=== PATIENT | male | born 1945 | race Caucasian/White ===

== ENCOUNTER → 2018-11-20 | Outpatient (CLI) | payer MEDICARE ==
--- NOTE | 2018-11-20 13:14 | PCVCIMAG ---
APPROVED REPORT Imaging Protocol: Rest Tc-99m/Stress Tc-99m 1 day Study performed: 11/20/2018 09:28:52 Indication: PAF, CAD Patient Location: Out-Patient Stress Nurse: Raiza Longo RN, NICHOLE Brown Tech:Hesham ArevaloKIM Ht: 5 ft 9 in Wt: 169 lbs BSA: 1.92 m2 HR: 56 bpm BP: 171/91 mmHg BMI: 24.95 Rhythm: Sinus Bradycardia Medical History Medical History: Age, Hyperlipidemia, HTN, Afib, CAD Medications: Xanax, ASA, Atorvastatin, Proscar, Levothyroxine, Metoprolol, Tramadol, Xarellto Allergies: Clopidogrel, Effient, Talwin Previous Cardiac Procedures: 2006 PCI - LAD/OM, 2016 - LAD Pretest Chest Pain Characteristics: No chest pain Exercise History: Indeterminate Physical Disabilities: Arthritis Resting Data Rest SPECT myocardial perfusion imaging was performed in supine position 45 minutes following the intravenous injection of 9.2 mCi of Tc-99m Sestamibi. Time of rest injection: 0855 Date: 11/20/2018 Administration Route: IV Administration Site: Right AC Pharmacologic Stress Pharmacologic stress test was performed by injecting Regadenoson 0.4 mg IV push over 10-15 seconds immediately followed by the intravenous injection of 28.2 mCi of Tc-99m Sestamibi. Time of stress injection: 1030 Date: 11/20/2018 Administration Route: IV Administration Site: Right AC Gated Stress SPECT was performed 45 minutes after stress injection. The images were gated to evaluate regional wall motion and calculate left ventricular ejection fraction. Stress Test Details Stress Test: Pharmacologic stress was paired with low level exercise. Reason for pharmacologic stress test: Arthritis. HRMax Heart Rate (APMHR): 148 bpm Resting HR: 56 bpmTarget HR (85% APMHR): 125 bpm Max HR Achieved: 104 bpm % of APMHR: 70 Recovery HR: 73 bpm BP Resting BP: 171/91 mmHg Max BP: 158/84 mmHg Recovery BP: 134/73 mmHg ECG Resting ECG: Sinus Bradycardia Stress ECG: Sinus Rhythm ST Change: Eqivocal Arrhythmia: None Recovery ECG: Sinus Rhythm Clinical Reason for Termination: Completed protocol Stress Symptoms: Lightheaded Exercise duration: 4 min 00 sec Symptoms resolved during recovery. Study Quality Study: Good Artifact: Mild Diaphragmatic artifact Study Data Post stress, the left ventricular ejection was 74%.. SSS: 1 SRS: 1 SDS: 0 TID = 1.03. Perfusion There is a medium area of mildly reduced uptake in the basal and mid segment of the inferior wall which is seen on the stress images as well as the resting images. This area thickens and moves normally and is most consistent with attenuation artifact. Wall Motion Normal left ventricular wall motion. Nuclear Conclusion ECG Findings: equivocal Clinical Findings: negative for ischemia Nuclear Findings: negative for ischemia Exercise Capacity: not assessed Left Ventricular Function: normal This study is of low probability for inducible ischemia or prior infarct. Normal global and segmental LV systolic function. Artifact: Mild Diaphragmatic artifact
== END ==
LOC: PCVCIMAG 09:20
PROVIDERS: ATTEND Internal Medicine Cardiovascular Disease
DX: I48.0 Paroxysmal atrial fibrillation (principal); I25.10 Atherosclerotic heart disease of native coronary artery without angina pectoris; E78.5 Hyperlipidemia, unspecified; I10 Essential (primary) hypertension; Z88.2 Allergy status to sulfonamides
CPT/HCPCS: 78452; 93017; A9500; G0463